=== PATIENT | female | born 1945 | race Caucasian/White ===

== ENCOUNTER 2018-04-10 19:06 | Emergency (ER) | payer MEDICARE ==
[~2018-04-10] VITALS: Ht 162.6 cm; Wt 80.7 kg
[2018-04-10] MEDS ORDERED: DOXEPIN 75 MG C75 M1 (19:35)
[2018-04-10] MEDS ORDERED: LISINOPRIL10 MG (19:35)
[2018-04-10] MEDS ORDERED: CRESTOR5 MG (19:36)
[2018-04-10] MEDS ORDERED: PREDNISONE 20 M20 M1 PO (19:49)
[2018-04-10 20:00] VITALS: BP 169/77
== END 2018-04-10 20:07 | disposition home or self-care (01) ==
LOC: M.ERS 19:06
DX: L23.7 Allergic contact dermatitis due to plants, except food (principal); I10 Essential (primary) hypertension; F32.9 Major depressive disorder, single episode, unspecified; E78.5 Hyperlipidemia, unspecified; Z90.710 Acquired absence of both cervix and uterus; F17.210 Nicotine dependence, cigarettes, uncomplicated; Z88.1 Allergy status to other antibiotic agents; Z91.040 Latex allergy status

== ENCOUNTER 2021-11-14 20:13 | Inpatient (IN) | payer MEDICARE ==
[~2021-11-14] VITALS: Ht 162.6 cm; Wt 79.4 kg
[~2021-11-14 20:13] MED LIST: CRESTOR5 MG; DOXEPIN 75 MG C75 M1; LISINOPRIL10 MG; PREDNISONE 20 M20 M1 PO
[2021-11-14 20:25] VITALS: BP 141/93
[2021-11-14] MEDS ORDERED: JARDIANCE10 MG PO (20:30)
[2021-11-14 20:45] LABS: ABSOLUTE BASOPHILS 0.1 thou/uL (0.0-0.2); ABSOLUTE EOSINOPHILS 0.1 thou/uL (0.0-0.7); ABSOLUTE LYMPHOCYTES 1.7 thou/uL (0.8-5.3); ABSOLUTE MONOCYTES 0.6 thou/uL (0.0-1.2); ABSOLUTE NEUTROPHILS 5.8 thou/uL (1.6-8.1); BASOPHILS 1.2 %; EOSINOPHILS 1.3 %; HEMATOCRIT 45.5 % (37.0-47.0); HEMOGLOBIN 15.6 gm/dL (12.0-15.0); LYMPHOCYTES 20.3 %; MCH 30.2 pg (26.0-34.0); MCHC 34.3 g/dL (28.0-37.0); MCV 88.1 fL (80.0-100.0); MONOCYTES 7.5 %; MPV 7.4 fl. (7.2-11.1); NUCLEATED RBCS 0 /100WBC; PLATELET COUNT* 226 thou/uL (150-400); POLYS 69.7 %; RBC 5.17 mil/uL (4.20-5.00); RDW-CV 13.3 % (10.5-14.5); WBC 8.3 thou/uL (4.0-11.0)
[2021-11-14 20:56] LABS: CALCIUM 9.4 mg/dL (8.5-10.1); POTASSIUM 3.8 mmol/L (3.5-5.1)
[2021-11-14 21:02] LABS: URINE BILIRUBIN NEGATIVE (Negative); URINE BLOOD NEGATIVE (Negative); URINE CLARITY CLEAR; URINE COLOR YELLOW; URINE GLUCOSE-RANDOM 3+ (Negative); URINE KETONES NEGATIVE (Negative); URINE LEUKOCYTES-REFLEX NEGATIVE (Negative); URINE NITRITE-REFLEX NEGATIVE (Negative); URINE PROTEIN NEGATIVE (Negative); URINE UROBILINOGEN 0.2 E.U./dl (0.2-1.0)
[2021-11-14 21:07] LABS: ALBUMIN 4.2 g/dL (3.4-5.0); MAGNESIUM 2.2 mg/dL (1.8-2.4); TOTAL BILIRUBIN 0.5 mg/dL (<0.1-1.0); TOTAL PROTEIN 7.4 g/dL (6.4-8.2)
[2021-11-15] VITALS (7 sets, daily range): BP systolic 137–179; BP diastolic 58–97
--- NOTE | 2021-11-15 11:33 | EKG ---
[place] [address] ELECTROCARDIOGRAM REPORT Name: NATACHA STWEART Room: [address]#: [id number] Admission: 11/15/21 Attend Phys: Kody Ybarra, Discharge: Date of : 47 Date of Service: 11/14/212025 Report #: [id number] THIS REPORT FOR: //name// [facility] ED Test Date: 2021-11-14 Test Time: 20:26:06 Pat Name: NATACHA STEWART Department: Room: [facility] Gender: F Taper Machine: SIMEON : 1945 Requested By: Berenice Bowman Order Number: [id number] MD: Shahram Griffin Measurements Intervals [place] Rate: 92 P: 52 ME: 132 QRS: 13 QRSD: 96 T: 201 QT: 342 QTc: 424 Interpretive Statements Sinus rhythm Probable left atrial enlargement Repol abnrm suggests ischemia, lateral leads Compared to ECG 07/21/2008 11:49:09 Early repolarization now present Possible ischemia still present Electronically Signed On 11-15-2021 11:33:21 [facility] by Shahram Griffin [email or web address] <ELECTRONICALLY SIGNED> By: Shahram Griffin MD, FACC 11/15/21 1133 25 25 Shahram Griffin MD, FAC /EPI
--- NOTE | 2021-11-15 15:46 | 2DMMODE ---
[place] [address] 2 D/M-MODE ECHOCARDIOGRAM Name: NATACHA STEWART Room: [address] Arnaud#: [id number] Admission: 11/15/21 Attend Phys: Kody Ybarra, Discharge: Date of : 47 Date of Service: 11/15/21 1546 Report #: [id number] THIS REPORT FOR: cc: Shwetha Schroeder MD, Katrina MD Liston, Michael J. MD [facility] ~ APPROVED REPORT Study performed: 11/15/2021 14:43:29 EXAM: Comprehensive 2D, Doppler, and color-flow Echocardiogram Patient Location: In-Patient Room #: [facility] Status: routine BSA: 1.85 BP: 179/65 mmHg Rhythm: NSR Other Information Study Quality: Good Indications CVA/TIA Echo Enhancing Agent Indication: Rule out Shunt Agent(s) / Amount(s) Used: Agitated Saline 10 cc 2D Dimensions IVSd: 12.98 (7-11mm) LVOT Diam: 19.71 (18-24mm) LVDd: 50.50 mm PWd: 12.08 (7-11mm) Ascending Ao: 31.82 (22-36mm) LVDs: 27.99 (25-40mm) Aortic Root: 30.80 mm Volumes Left Atrial Volume (Systole) LA ESV Index: 22.70 mL/m2 Aortic Valve AoV Peak Landon.: 1.72 m/s AO Peak Gr.: 11.88 mmHg LVOT Max P.18 mmHg AO Mean Gr.: 6.76 mmHg LVOT Mean P.36 [place] [address] 2 D/M-MODE ECHOCARDIOGRAM Name: PATNATACHA [place] Room: [address] MGaroRGaro#: [id number] Admission: 11/15/21 Attend Phys: Kody Ybarra, Discharge: Date of : 47 Date of Service: 11/15/21 1546 Report #: [id number] LVOT Max V: 1.60 m/s AO V2 VTI: 31.77 cm LVOT Mean V: 1.34 m/s KEITH (VTI): 2.72 cm2 LVOT V1 VTI: 28.33 cm Mitral Valve E/A Ratio: 0.70 MV Decel. Time: 369.89 ms MV E Max Landon.: 0.76 m/s MV PHT: 107.27 ms MVA (PHT): 2.05 cm2 TDI E/Lateral E': 8.44 E/Medial E': 8.44 Medial E' Landon.: 0.09 m/s Lateral E' Landon.: 0.09 m/s Pulmonary Valve PV Peak Landon.: 1.41 m/s PV Peak Gr.: 7.97 mmHg Left Ventricle The left ventricle is normal size. There is normal LV segmental wall motion. Mild concentric left ventricular hypertrophy. Left ventricular systolic function is normal. LVEF is >70%. Grade I - abnormal relaxation pattern. Right Ventricle The right ventricle is normal size. The right ventricular systolic function is normal. Atria The left atrium size is normal. The interatrial septum is intact with no evidence for an atrial septal defect. The right atrium size is normal. Aortic Valve The aortic valve is normal in structure. No aortic regurgitation is present. There is no aortic valvular stenosis. Mitral Valve The mitral valve is normal in structure. There is no mitral valve regurgitation noted. No evidence of mitral valve stenosis. Tricuspid Valve The tricuspid valve is normal in structure. Unable to assess PA pressure. Trace [place] [address] 2 D/M-MODE ECHOCARDIOGRAM Name: NATACHA STEWART Room: [address]#: [id number] Admission: 11/15/21 Attend Phys: Kody Ybarra, Discharge: Date of : 47 Date of Service: 11/15/21 1546 Report #: [id number] Pulmonic Valve The pulmonary valve is normal in structure. There is no pulmonic valvular regurgitation. Great Vessels The aortic root is normal in size. IVC is normal in size and collapses >50% with inspiration. Pericardium There is no pericardial effusion. <Conclusion> The left ventricle is normal size. Mild concentric left ventricular hypertrophy. Left ventricular systolic function is normal. LVEF is >70%. Grade I - abnormal relaxation pattern. The interatrial septum is intact with no evidence for an atrial septal defect. Trace tricuspid regurgitation. IVC is normal in size and collapses >50% with inspiration. <ELECTRONICALLY SIGNED> By: Babatunde Adams MD, FACC 11/15/21 1546 1546 1546 Babatunde Adams MD, FACC /INF
[2021-11-16] VITALS: BP 181/70
[2021-11-16 04:00] VITALS: BP 153/65
[2021-11-16 04:29] LABS: CHOLESTEROL 231 mg/dL (<200); HDL CHOLESTEROL 69 mg/dL (>40); LDL CHOLESTEROL 146 mg/dL (<100); TC:HDL 3.3 Ratio (Not establshd); TRIGLYCERIDE 82 mg/dL (<150); VLDL 16 mg/dL (<40)
[2021-11-16 04:40] LABS: SERUM ASSESSMENT Clear
[2021-11-16 08:45] VITALS: BP 195/87
[2021-11-16 12:42] LABS: APTT 27.4 Seconds (25.0-31.3); PROTIME 10.6 Seconds (9.20-11.50)
--- NOTE | 2021-11-16 13:41 | CON ---
[address] [address] CONSULTATION Name: NATACHA STEWART Room: [address] IN .R.#: [id number] Admission: 11/16/21 Attend Phys: Kody Ybarra MD Discharge: Date of : 47 Report #: [id number] THIS REPORT FOR: cc: Shwetha Schroeder MD, Katrina MD Khosla, Parveen K. MD ~ DATE OF CONSULTATION: 11/15/2021 HISTORY OF PRESENT ILLNESS: This is a 75-year-old female patient who was evaluated by me for an episode where she said she was wobbly. She has become better. Other notes indicated she said her symptoms have resolved, but to me, she tells me the symptoms have not fully resolved, but is better. She is also complaining of multiple other symptoms like numbness in both hands. There has been no speech difficulty. She never had this kind of episode before. REVIEW OF SYSTEMS: Positive for hyperlipidemia, hypertension and diabetes according to the patient. She had an ovarian cyst and hysterectomy. She says she takes doxepin at night because she cannot sleep and she has a history of depression. When I asked her specifically about the neck, she said she does have some trouble with neck pain. She denies any new eye, ENT, cardiac, respiratory, GI, , musculoskeletal, constitutional, dermatological, hematological, psychiatric, throat, allergic symptom associated with present symptomatology except as described above. She does have a history of depression. PAST MEDICAL HISTORY: Negative for these kind of symptoms. FAMILY HISTORY: She thinks her mother may have had a stroke. SOCIAL HISTORY: She smokes, but does not drink any alcohol. PHYSICAL EXAMINATION: She is alert and responsive, appear anxious. Her speech and concentration looks unremarkable. Cranial nerve examination 2-12 looks mostly unremarkable. She has a symmetrical strength, sensation, reflexes and tone in all 4 extremities. She did pretty well with the position sense. Her knees are elicitable and appear mostly unremarkable. They are not hyper. Her plantars are withdrawal. She has no cerebellar sign. There is no meningeal sign. Fundus looks unremarkable. She does not have any edema. Her hearing and vision looks adequate. She has no thyroid mass. Her blood pressure is 167/58, respirations 18, pulse is 72, temperature is 98.2. LABORATORY DATA: Indicated normal white count and normal GFR. She had imaging study. She had a CTA of the head and neck, which demonstrated some plaque, but nothing [place] [address] CONSULTATION Name: NATACHA STEWART [place] Room: [address]#: [id number] Admission: 11/16/21 Attend Phys: Kody Ybarra MD Discharge: Date of : 47 Report #: [id number] IMPRESSION: 1. Transient ischemic attack versus labyrinthitis. 2. Her neck pain is difficult to evaluate. Similarly numbness in the hand is difficult to evaluate. It may be a carpal tunnel syndrome, cervical radiculopathy or neuropathy. I recommended an MRI of the brain and C-spine. She declined that because she said she is extremely claustrophobic. She is so claustrophobic that she will not be able to do it even an open MRI. In these circumstances, we will get a CT scan of the head and C-spine. We will get her evaluated by PT and OT. I will order a TSH and vitamin B12. If this workup come out to be unremarkable, then the best is to let her go home and follow up with an ENT physician. If symptoms persist or become worse, then she should go to a bigger hospital like where they can do it MRI under sedation. Thank you very much for this referral. This patient needs to stop smoking. It does not matter what the etiology of the patient's symptoms is. <ELECTRONICALLY SIGNED> By: Ramon Dillard MD 11/16/21 1341 1633 06Ramon Dillard MD /anjali
[2021-11-16 13:51] VITALS: BP 174/84
[2021-11-16] MEDS ORDERED: LIPITOR 40 MG T40 M1 PO (15:52)
[2021-11-16] MEDS ORDERED: PLAVIX 75 MG TA75 M1 PO ×2 (15:52→15:57)
[2021-11-16] MEDS ORDERED: ADULT LOW DOSE81 MG PO (15:52)
[2021-11-16] MEDS ORDERED: ZETIA10 MG PO (15:54)
[2021-11-16 16:20] VITALS: BP 174/84
[2021-11-17 07:08] LABS: GLYCOHEMOGLOBIN (HGB A1C) 7.5 % (4.8-5.6)
--- NOTE | 2021-11-17 13:06 | CARD ---
[address] [address] CARDIAC CATH REPORT Name: NATACHA STEWART Room: [address]#: [id number] Admission: 11/16/21 Attend Phys: Kody Ybarra MD Discharge: 11/16/21 Date of : 47 Report #: [id number] THIS REPORT FOR: cc: Shwetha Schroeder MD, Katrina MD Blick, David R. MD [facility] ~ cc: Shwetha Schroeder MD DATE OF SERVICE: 11/16/2021 PROCEDURE: Implantation of a [employer] LINQ implantable process consultant. INDICATIONS: Implantation of a process consultant was requested in this patient with a history of stroke. DESCRIPTION OF PROCEDURE: Informed consent was obtained by discussing indication, alternatives and risk of the procedure to the patient. She agreed to proceed. DESCRIPTION OF PROCEDURE: The area over the left anterior chest was cleaned with ChloraPrep and sterilely draped in the usual fashion. The area was anesthetized with 1% lidocaine. A blade was then made to making an incision in the left fourth intercostal space, 1 inch lateral to the sternum. A LINQ application device was then used and inserted into the subcutaneous tissue at a 45-degree angle pointing towards the left hip. The LINQ process consultant was then inserted. The device was removed. Hemostasis was achieved with direct pressure. Dermabond solution was then applied over the incision. The patient tolerated the procedure well and was transferred back to her monitored bed in stable condition. IMPRESSION: Successful implantation of implantable process consultant. <ELECTRONICALLY SIGNED> By: Shahram Griffin MD, FACC 11/17/21 1306 1336 1923Dleland Griffin MD, FACC /nt
--- NOTE | 2021-11-17 13:06 | CON ---
[address] [address] CONSULTATION Name: NATACHA STEWART Room: [address] IN [facility]#: [id number] Admission: 11/16/21 Attend Phys: Kody Ybarra MD Discharge: 11/16/21 Date of : 47 Report #: [id number] THIS REPORT FOR: cc: Shwetha Schroeder MD, Katrina MD Blick,Shahram Sosa MD [facility] ~ cc: Shwetha Schroeder MD DATE OF CONSULTATION: 11/16/2021 CARDIOLOGY CONSULTATION PRIMARY CARE PHYSICIAN: Shwetha Schroeder MD HISTORY OF PRESENT ILLNESS: The patient is a 75-year-old white female whom I was asked to see in the hospital today after she had a stroke. The history is obtained from the patient as well as some old records. The patient denies a history of heart disease. She is not very active at this time. She has had no previous cardiac evaluation. She was admitted to the hospital 2 days ago. She was at home when she was having problems with balance in the afternoon. The room was spinning. She also notes some numbness of her left hand that was difficult to move. She has noticed some numbness of her right leg. Denied blurred vision, slurred speech, or headache. Her finally brought her to the Emergency Room. She is felt to have a stroke. She is seen by Neurology and placed on Plavix. Cardiology consultation requested. At this time, her right arm and leg have improved. She denies a history of chest pain, shortness of breath, palpitations, syncope, or peripheral edema. PAST MEDICAL HISTORY: She has had previous hysterectomy, ovarian cyst removal, hypertension, diabetes, hyperlipidemia. MEDICATIONS: Include Crestor, she only takes twice a week because of intolerance, lisinopril 10 mg a day, Jardiance and aspirin a day. ALLERGIES: SHE HAS A PREVIOUS INTOLERANCE TO CLINDAMYCIN. FAMILY HISTORY: Negative for heart disease. SOCIAL HISTORY: She is . She and her live in [place]. She smokes 1/2 pack of cigarettes a day. No alcohol abuse. REVIEW OF SYSTEMS: No history of asthma. She had a bleeding peptic ulcer years ago. No history of liver disease, kidney disease, cancer, psychiatric illness, [place] [address] CONSULTATION Name: NATACHA STEWART Room: [address]#: [id number] Admission: 11/16/21 Attend Phys: Kody Ybarra MD Discharge: 11/16/21 Date of : 47 Report #: [id number] PHYSICAL EXAMINATION: GENERAL: Revealed an elderly female, lying in bed. She appeared in no distress. VITAL SIGNS: She had a blood pressure of 160/80, pulse 80. She is afebrile. HEENT: She was anicteric. Conjunctivae pink. Mucous membranes are moist. NECK: Veins are not distended. No carotid bruits. Neck is supple. CHEST: Clear to auscultation. HEART: Regular rate and rhythm. ABDOMEN: Soft. EXTREMITIES: Had no edema. Dorsalis pedis pulse 3+ bilaterally. SKIN: Cool and dry. NEUROLOGIC: Nonfocal. LABORATORY DATA: ECG on admission showed a sinus rhythm with nonspecific ST and T-wave changes. Her workup so far, she had an echocardiogram yesterday that showed ejection fraction over 65%, left ventricular hypertrophy. No evidence of shunt by bubble study. DIAGNOSTIC DATA: She had a CT scan of the head without contrast that showed small left posterior frontal subacute ischemic lacunar infarction. She had a CTA of the neck that showed bilateral carotid plaquing 40% on the right, 25% on the left. Her chest x-ray on admission showed normal heart size, clear lung alonzo. Her lab work; creatinine 1.0. Liver function studies were normal. High sensitivity troponin was 6. BNP 51. Cholesterol 231, triglyceride 82, HDL 69, LDL 146. TSH 3.0. White blood cell count 8.3, hematocrit 45.5. Her COVID antigen stat test was negative. Urinalysis is negative for protein. IMPRESSION AND RECOMMENDATIONS: 1. Lacunar infarction. Consider monitoring tech to rule out atrial fibrillation. The patient was placed on Plavix and taken off of aspirin by Neurology. 2. Mild carotid stenosis. 3. Hypertension. The patient is on LAMONT inhibitor. 4. Diabetes. The patient is on oral medications. 5. Hyperlipidemia. I would aim for an LDL of less than 100. Apparently, the patient cannot tolerate higher doses of statin drugs. I would consider adding Zetia. 6. Tobacco abuse. 7. Previous history of bleeding ulcer. <ELECTRONICALLY SIGNED> By: Shahram Griffin MD, FACC 11/17/21 1306 1121 1909David Sheila Griffin MD, FAC /nt
== END 2021-11-16 17:26 | disposition home or self-care (01) | DRG 41 ==
LOC: M.ERS 20:13 → M.2W 11-15 00:19 → M.TBA-ER 11-15 00:19 → M.2W 11-15 01:07
PROVIDERS: Emergency Medicine; Internal Medicine; Psychiatry & Neurology Neuromuscular Medicine; ADMIT Internal Medicine; ATTEND Internal Medicine
PROC: 0JH632Z Insertion of Monitoring Device into Chest Subcutaneous Tissue and Fascia, Percutaneous Approach (ICD-10-PCS; principal; 2021-11-16)
DX: I63.9 Cerebral infarction, unspecified (principal); G81.91 Hemiplegia, unspecified affecting right dominant side; Z88.8 Allergy status to other drugs, medicaments and biological substances; Z91.040 Latex allergy status; F17.210 Nicotine dependence, cigarettes, uncomplicated; E78.5 Hyperlipidemia, unspecified; E11.9 Type 2 diabetes mellitus without complications; Z20.822 Contact with and (suspected) exposure to COVID-19; F32.A Depression, unspecified